=== PATIENT | male | born 1940 | race Caucasian/White ===

== ENCOUNTER 2016-08-18 11:10 | Inpatient (IN) | payer MEDICARE ==
[~2016-08-18] VITALS: Ht 185.4 cm; Wt 79.8 kg
[~2016-08-18 11:10] MED LIST: DOXA2TAB2 PO; NITR0.4T SL; PRAV40TA2 PO; TRAM50TA PO
[2016-08-18 14:38] VITALS: BP 119/71
[2016-08-18 15:14] VITALS: BP 119/71
[2016-08-18] MEDS ORDERED: INUL2TAB4 PO (15:59)
[2016-08-18] MEDS ORDERED: FINA5TAB4 PO (16:00)
[2016-08-18] MEDS ORDERED: GABA-586 PO (16:01)
[2016-08-18] MEDS ORDERED: MULT-690 PO (16:01)
[2016-08-18] MEDS ORDERED: MIRA50TA PO (16:02)
[2016-08-18] MEDS ORDERED: OMEP40CA5 PO (16:04)
[2016-08-18] MEDS ORDERED: OXYC-323 PO (16:06)
[2016-08-18] MEDS ORDERED: TAMS0.4C2 PO (16:07)
[2016-08-18] MEDS ORDERED: CALC-30 PO (16:11)
[2016-08-18] MEDS ORDERED: ASPI81TA50 PO (16:12)
[2016-08-18] MEDS ORDERED: IPRA3AMP NEB (16:13)
[2016-08-18] MEDS ORDERED: ZOLPIDEM 5 MG TABLET. PO PRN (16:45)
[2016-08-18] MEDS: AMPICILLIN/SULBACTAM 3 GM in IV NORMAL SALINE 100ML 100 ML IV SCH ×2 (17:48→23:55)
[2016-08-18] MEDS ORDERED: oxyCODONE/APAP 5/325 1 TAB TABLET PO PRN (18:30)
[2016-08-18 19:50] VITALS: BP 110/65
[2016-08-18] MEDS: PRAVASTATIN 20 MG TABLET. PO SCH (20:00)
[2016-08-18] MEDS: GABAPENTIN 300 MG CAPSULE. PO SCH (20:01)
[2016-08-18] MEDS: IPRATRPIUM/ALBUTEROL 0.5/2.5MG 3 ML NEBU. NEB SCH (20:32)
[2016-08-19 05:37] VITALS: BP 112/66
[2016-08-19] MEDS: AMPICILLIN/SULBACTAM 3 GM in IV NORMAL SALINE 100ML 100 ML IV SCH (05:59)
[2016-08-19 06:31] LABS: ALBUMIN/GLOBULIN RATIO 0.8 (1.0-1.7); CALCIUM 9.8 mg/dL (8.5-10.1); CREATININE 1.3 mg/dL (0.7-1.3); GFR 53.8; POTASSIUM 4.5 mmol/L (3.5-5.1); TOTAL BILIRUBIN 0.3 mg/dL (0.2-1.0); TOTAL PROTEIN 6.6 g/dL (6.4-8.2)
[2016-08-19] MEDS: CALCIUM CARB/VIT D3 500/200 TABLET PO SCH (07:50)
[2016-08-19] MEDS: PANTOPRAZOLE 40 MG TABLET. PO SCH (08:43)
[2016-08-19] MEDS: FINASTERIDE 5 MG TABLET PO SCH (08:43)
[2016-08-19] MEDS: MULTIVITAMIN with MINERAL TABLET. PO SCH (08:43)
[2016-08-19] MEDS: TAMSULOSIN 0.4 MG CAP.ER.24H. PO SCH (08:43)
[2016-08-19] MEDS: ASPIRIN ENTERIC COATED 81 MG TABLET.DR. PO SCH (08:43)
[2016-08-19] MEDS: GABAPENTIN 300 MG CAPSULE. PO SCH ×2 (08:43→20:44)
[2016-08-19] MEDS: MIRABEGRON 25 MG TAB.ER.24H PO SCH (08:45)
[2016-08-19] MEDS ORDERED: NON FORMULARY ITEM (Inulin (Fiber Gummies) 2 GM) PO SCH (09:00)
[2016-08-19] MEDS: IPRATRPIUM/ALBUTEROL 0.5/2.5MG 3 ML NEBU. NEB SCH ×2 (10:51→20:16)
[2016-08-19] MEDS: NAPROXEN 250 MG TABLET PO PRN (11:47)
[2016-08-19 18:43] VITALS: BP 120/74
[2016-08-19] MEDS: AMOXICILLIN/K CLAV 875/125MG TABLET. PO SCH (20:44)
[2016-08-19] MEDS: PRAVASTATIN 20 MG TABLET. PO SCH (20:44)
[2016-08-20 06:00] VITALS: BP 110/71
[2016-08-20] MEDS: CALCIUM CARB/VIT D3 500/200 TABLET PO SCH (07:54)
[2016-08-20] MEDS: PANTOPRAZOLE 40 MG TABLET. PO SCH (07:54)
[2016-08-20] MEDS: NAPROXEN 250 MG TABLET PO PRN ×2 (08:04→20:57)
[2016-08-20] MEDS: TAMSULOSIN 0.4 MG CAP.ER.24H. PO SCH (08:44)
[2016-08-20] MEDS: AMOXICILLIN/K CLAV 875/125MG TABLET. PO SCH ×2 (08:44→20:41)
[2016-08-20] MEDS: ASPIRIN ENTERIC COATED 81 MG TABLET.DR. PO SCH (08:44)
[2016-08-20] MEDS: MULTIVITAMIN with MINERAL TABLET. PO SCH (08:45)
[2016-08-20] MEDS: FINASTERIDE 5 MG TABLET PO SCH (08:45)
[2016-08-20] MEDS: MIRABEGRON 25 MG TAB.ER.24H PO SCH (08:45)
[2016-08-20] MEDS: GABAPENTIN 300 MG CAPSULE. PO SCH ×2 (08:45→20:41)
[2016-08-20] MEDS: IPRATRPIUM/ALBUTEROL 0.5/2.5MG 3 ML NEBU. NEB SCH ×2 (09:49→20:25)
[2016-08-20 09:52] LABS: BILIRUBIN,URINE NEG (NEG); CLARITY,URINE CLEAR; COLOR,URINE YELLOW; GLUCOSE,URINE NEG (NEG); NITRITE,URINE NEG (NEG); UROBILINOGEN,URINE 0.2 mg/dL (0.2 mg/dL)
[2016-08-20 09:53] LABS: BACTERIA,URINE FEW /HPF (0-FEW); RBC,URINE OCC /HPF (0-2); SQUAMOUS EPITHELIAL CELL,UR OCC /LPF; WBC,URINE RARE /HPF (0-4)
[2016-08-20 19:28] VITALS: BP 150/64
[2016-08-20] MEDS: PRAVASTATIN 20 MG TABLET. PO SCH (20:41)
--- NOTE | 2016-08-21 00:18 | PN ---
DATE: 08/20/2016 SUBJECTIVE: He is on the Skilled Unit here at [facility] was brought over. He had a combination of sepsis with pneumonia and enterobacter infections. As a result of this, the patient was admitted to the hospital over there he continues on IV antibiotic therapy and will make further evaluation on him as indicated. He does have a low albumin. He is still receiving physical, occupational therapy, and will continue to make further assessment on him as indicated. OBJECTIVE: VITAL SIGNS: Otherwise, blood pressure 110/70, respiratory rate 20, pulse 70, afebrile. The patient is alert and oriented. LUNGS: Diminished, but clear. CARDIOVASCULAR: Stable. ABDOMEN: Soft, nontender. EXTREMITIES: No clubbing, cyanosis, or edema. PLAN: We will go ahead and continue to monitor the patient accordingly and make further evaluation with antibiotics, physical, and occupational therapy. He also had COPD acute respiratory failure. AUSTYN MCNEIL MD DR: ERIC/jada JOB#: [id number] / [id number]
[2016-08-21 06:00] VITALS: BP 100/65
[2016-08-21] MEDS: TAMSULOSIN 0.4 MG CAP.ER.24H. PO SCH (07:34)
[2016-08-21] MEDS: AMOXICILLIN/K CLAV 875/125MG TABLET. PO SCH (07:34)
[2016-08-21] MEDS: ASPIRIN ENTERIC COATED 81 MG TABLET.DR. PO SCH (07:34)
[2016-08-21] MEDS: CALCIUM CARB/VIT D3 500/200 TABLET PO SCH (07:34)
[2016-08-21] MEDS: GABAPENTIN 300 MG CAPSULE. PO SCH (07:35)
[2016-08-21] MEDS: MIRABEGRON 25 MG TAB.ER.24H PO SCH (07:35)
[2016-08-21] MEDS: FINASTERIDE 5 MG TABLET PO SCH (07:35)
[2016-08-21] MEDS: PANTOPRAZOLE 40 MG TABLET. PO SCH (07:35)
[2016-08-21] MEDS: MULTIVITAMIN with MINERAL TABLET. PO SCH (07:35)
[2016-08-21] MEDS: IPRATRPIUM/ALBUTEROL 0.5/2.5MG 3 ML NEBU. NEB SCH (11:40)
== END 2016-08-21 13:10 | disposition home or self-care (01) | DRG 871 ==
LOC: LND 14:16
PROVIDERS: ADMIT Family Medicine; ATTEND Family Medicine
DX: A41.59 Other Gram-negative sepsis (principal); J18.9 Pneumonia, unspecified organism; J44.0 Chronic obstructive pulmonary disease with (acute) lower respiratory infection; N39.0 Urinary tract infection, site not specified; J44.9 Chronic obstructive pulmonary disease, unspecified
CPT/HCPCS: 36415; 80048; 80053; 81001; 94640; 94760; J0295; J7620; 97110

== ENCOUNTER → 2016-08-21 | Outpatient (CLI) | payer MEDICARE ==
[~2016-08-21] MED LIST changes: +ASPI81TA50 PO; +CALC-30 PO; +FINA5TAB4 PO; +GABA-586 PO; +INUL2TAB4 PO; +IPRA3AMP NEB; +MIRA50TA PO; +MULT-690 PO; +OMEP40CA5 PO; +OXYC-323 PO; +TAMS0.4C2 PO
[2016-08-21 06:00] VITALS: BP 100/65
--- NOTE | 2016-08-21 15:51 | RAD ---
Scrotal ultrasound, 08/21/2016: History: Left testicular pain The right testicle measures 4.6 x 2.2 x 3.5 cm while the left testicle measures 4.6 x 2.5 x 3.4 cm. No testicular mass is seen. There is symmetric blood flow in the testicles. No epididymal abnormality is detected. There is a small amount of fluid in the scrotal sac bilaterally. There is a small amount of echogenic debris within the left hydrocele. IMPRESSION: 1. No testicular abnormality is detected. 2. Small bilateral hydroceles.
== END | disposition home or self-care (01) ==
LOC: US 13:20
PROVIDERS: ATTEND Family Medicine
DX: N43.3 Hydrocele, unspecified (principal); N50.82 Scrotal pain
CPT/HCPCS: 76870

== ENCOUNTER 2019-02-25 19:50 | Inpatient (IN) | payer MEDICARE ==
[~2019-02-25] VITALS: Ht 185.4 cm; Wt 78.6 kg
[~2019-02-25 19:50] MED LIST changes: -IPRA3AMP NEB; +IPRA3AMP29 NEB; -NITR0.4T SL; +NITR0.4T24 SL; +OMEP40CA45 PO; -OMEP40CA5 PO; -OXYC-323 PO; +OXYC1TAB15 PO
[2019-02-25 20:36] VITALS: BP 113/71
[2019-02-25] MEDS ORDERED: IV NORMAL SALINE 1,000ML 1,000 ML IV SCH (21:15)
[2019-02-25] MEDS ORDERED: ZOLPIDEM 5 MG TABLET. PO PRN (21:15)
[2019-02-25] MEDS ORDERED: DULO20CA18 PO (21:46)
[2019-02-25] MEDS ORDERED: ACET325T9 PO (21:46)
[2019-02-25] MEDS ORDERED: PRAV20TA2 PO (21:46)
[2019-02-25] MEDS ORDERED: NAPR220C4 PO (21:46)
[2019-02-25 22:42] VITALS: BP 150/81
[2019-02-26 00:37] LABS: BILIRUBIN,URINE NEG (NEG); CLARITY,URINE CLEAR; COLOR,URINE YELLOW; GLUCOSE,URINE NEG (NEG); UROBILINOGEN,URINE 0.2 mg/dL (0.2 mg/dL)
[2019-02-26 00:38] LABS: BACTERIA,URINE 0 /HPF (0-FEW); NITRITE,URINE NEG (NEG); SQUAMOUS EPITHELIAL CELL,UR OCC /LPF; WBC,URINE OCC /HPF (0-4)
[2019-02-26 05:30] VITALS: BP 114/81
[2019-02-26] MEDS: PANTOPRAZOLE 40 MG TABLET. PO SCH (08:09)
[2019-02-26] MEDS ORDERED: FINASTERIDE 5 MG TABLET PO SCH (09:00)
[2019-02-26] MEDS ORDERED: GABAPENTIN 300 MG CAPSULE. PO SCH (09:00)
[2019-02-26] MEDS ORDERED: TAMSULOSIN 0.4 MG CAP.ER.24H. PO SCH (09:00)
[2019-02-26] MEDS ORDERED: MIRABEGRON 25 MG TAB.ER.24H PO SCH (09:00)
[2019-02-26] MEDS ORDERED: ASPIRIN ENTERIC COATED 81 MG TABLET.DR. PO SCH ×2 (09:00→21:00)
[2019-02-26] MEDS ORDERED: ACETAMINOPHEN 500 MG TABLET PO PRN (10:15)
[2019-02-26] MEDS ORDERED: NAPROXEN 250 MG TABLET PO PRN (10:15)
[2019-02-26] MEDS: DULoxetine HCL 60 MG CAPSULE.DR PO SCH (10:17)
[2019-02-26] MEDS: MAALOX:LIDO:APAP 6:2:1 ORAL SUSPENSION 180 ML BOTTLE. PO PRN (11:08)
[2019-02-26 11:10] VITALS: BP 118/69
[2019-02-26 15:00] VITALS: BP 119/68
[2019-02-26 18:54] VITALS: BP 144/82
[2019-02-26] MEDS ORDERED: ATORVASTATIN CALCIUM 10 MG TABLET. PO SCH (21:00)
[2019-02-26] MEDS: LACTOBACILLUS RHAMNOSUS GG 1 CAPSULE. PO SCH (21:36)
[2019-02-26 23:20] VITALS: BP 127/80
--- NOTE | 2019-02-26 23:43 | PN ---
DATE: SUBJECTIVE: A 78-year-old male admitted with pneumonia, hematuria, nephrolithiasis, severe back and flank pain. The patient has been ill for the last 4 days; prior to admission, running temperatures at home; came in through the office and was very weakened. CT scan initially was missed reported his diverticulitis, but did show infiltrative processes within the patient's lungs consistent with a pneumonic process, which would go along also with his cough. A PCR was performed in the office that is still pending. PHYSICAL EXAMINATION: VITAL SIGNS: His blood pressure was high as 150/81, respiratory rate 20, pulse 80. He is afebrile presently, actually he is almost on the low side 97.2. GENERAL: The patient is alert and oriented. LUNGS: Diminished. There is some rough breath sounds in the left lower lobe. CARDIOVASCULAR: Regular sinus rhythm. ABDOMEN: Soft. There is tenderness. He does have tenderness in his epigastric area and mild tenderness in the left lower quadrant area, but he also was noted on CAT scan to have a large 11 cm cyst in his kidneys and also nephrolithiasis. IMPRESSION: Pneumonia of unspecified etiology, community acquired; hematuria; nephrolithiasis; epigastric pain; diverticulosis. PLAN: As above. Continue with IV antibiotic therapy for now and make further evaluation on him as indicated. AUSTYN MCNEIL MD DR: ERIC/jada JOB#: [id number] / [id number]
[2019-02-27 06:05] VITALS: BP 125/72
[2019-02-27] MEDS: DULoxetine HCL 60 MG CAPSULE.DR PO SCH (08:19)
[2019-02-27] MEDS: PANTOPRAZOLE 40 MG TABLET. PO SCH (08:19)
[2019-02-27] MEDS: LACTOBACILLUS RHAMNOSUS GG 1 CAPSULE. PO SCH (08:19)
[2019-02-27] MEDS: MAALOX:LIDO:APAP 6:2:1 ORAL SUSPENSION 180 ML BOTTLE. PO PRN ×2 (09:14→16:02)
[2019-02-27] MEDS ORDERED: FAMOTIDINE 20 MG TABLET PO SCH (10:30)
[2019-02-27 10:54] VITALS: BP 115/71
[2019-02-27] MEDS ORDERED: OXYMETAZOLINE 0.05% NASAL SPRAY 15ML BOTTLE. NS SCH (14:00)
[2019-02-27 14:32] VITALS: BP 127/61
[2019-02-27] MEDS ORDERED: DOXY100C2 PO (17:37)
[2019-02-27] MEDS ORDERED: DOXYCYCLINE HYCLATE 100 MG TABLET PO SCH (21:00)
--- NOTE | 2019-02-28 13:53 | DS ---
DATE OF DISCHARGE: 02/27/2019 HOSPITAL COURSE: A 78-year-old gentleman came in with severe nausea, vomiting, abdominal pain as well as pneumonia. The patient had been treated as an outpatient and failed that, became increasingly ill in the last 3-4 days prior to admission, got progressively worse and was admitted to the hospital for further evaluation and treatment. Blood pressure 127/61, respiratory rate 20, pulse 80, afebrile. The patient was alert and oriented. Lungs: Diminished, primarily in the bases. Imaging scans demonstrated linear markings compatible with probable interstitial infiltrative process, which went along with a temperature he was running as an outpatient. He did have on CT scan also diverticulosis, multiple renal lesions, one of which the left kidney demonstrated 11.7 cm diameter larger compared with limited previous images of that area. The patient otherwise had a moderately large hiatal hernia as noted, prostatomegaly and of course, his pneumonia. He was treated with IV antibiotic therapy. He was discharged home in good condition without any complication. He will be on a regular diet, decreased activity. See MRAD. He was started on doxycycline as an outpatient. He will follow up as an outpatient and make further evaluation on him for those results. IMPRESSION: Pneumonia of unspecified etiology, community acquired, large renal cyst as well as abdominal pain, nausea, dehydration. PLAN: As above. AUSTYN MCNEIL MD DR: ERIC/jada JOB#: [id number] / [id number]
== END 2019-02-27 18:08 | disposition home or self-care (01) | DRG 640 ==
LOC: 1 SOUTH 19:50
PROVIDERS: ADMIT Family Medicine; ATTEND Family Medicine
DX: E86.0 Dehydration (principal); J18.9 Pneumonia, unspecified organism; K57.92 Diverticulitis of intestine, part unspecified, without perforation or abscess without bleeding; N20.0 Calculus of kidney; K44.9 Diaphragmatic hernia without obstruction or gangrene; N28.1 Cyst of kidney, acquired
CPT/HCPCS: 36415; 74176; 80053; 81001; 83605; 83690; 84145; 85025; J0696; J1956; J3490; J7030

== ENCOUNTER 2020-11-02 20:59 | Emergency (ER) | payer MEDICARE ==
[~2020-11-02] VITALS: Ht 185.4 cm; Wt 77.2 kg
[~2020-11-02 20:59] MED LIST changes: +ACET325T9 PO; +DOXY100C3 PO; +DULO20CA18 PO; +MIRA25TA PO; -MIRA50TA PO; +NAPR220C4 PO; -OMEP40CA45 PO; +OMEP40CA7 PO; +PRAV20TA2 PO
[2020-11-02] MEDS ORDERED: ONDANSETRON PF 4 MG/2 ML VIAL. IVP ONE (22:00)
[2020-11-02] MEDS ORDERED: IV RINGERS SOLUTION,LACTATED 1,000 ML IV ONE (22:00)
[2020-11-02] MEDS ORDERED: MORPHINE SULFATE 4 MG/ML DISP.SYRIN. IV ONE (22:00)
[2020-11-02 22:06] LABS: BASO % 0 % (0-3); EOS % 1 % (0-3); HEMATOCRIT 42.4 % (39.0-53.0); HEMOGLOBIN 14.4 g/dL (13.0-17.5); LYMPH # 0.6 x10^3/uL (1.0-4.8); LYMPH % 10 % (24-48); MEAN CORPUSCULAR HEMOGLOBIN 31 pg (25-35); MEAN CORPUSCULAR HGB CONC 34 g/dL (31-37); MEAN CORPUSCULAR VOLUME 92 fL (79-100); MONO # 1.1 x10^3/uL (0.0-1.1); MONO % 17 % (0-9); NEUT # 4.5 x10^3uL (1.8-7.7); NEUT % 72 % (31-73); PLATELET COUNT 236 x10^3/uL (140-400); RED BLOOD COUNT 4.59 x10^6/uL (4.30-5.70); RED CELL DISTRIBUTION WIDTH 13.3 % (11.5-14.5); WHITE BLOOD COUNT 6.3 x10^3/uL (4.0-11.0)
[2020-11-02 22:14] LABS: CALCIUM 9.6 mg/dL (8.5-10.1); CREATININE 1.3 mg/dL (0.7-1.3); GFR 53.1; POTASSIUM 4.4 mmol/L (3.5-5.1)
--- NOTE | 2020-11-02 22:17 | PHYS DOC ---
Adult General Chief Complaint Chief Complaint: FEVER HPI HPI Patient is an 80-year-old male with a past medical history significant for recent lithotripsy and cyst drainage of kidney approximately a week ago with a 13 mm stone. States he was discharged from the hospital about a week ago and since then has had some flank pain, 6 out of 10, sharp in nature but has run out of his pain medication. States he has had some mild nausea but no vomiting. States has had fevers at home around 100 degrees. Denies any chest pain, shortness of breath, other abdominal pain, vomiting, dysuria, hematuria, blood in the stool or diarrhea. States that he went to his primary care physician and was directed to the emergency department for IV fluids and pain medicine. Review of Systems Review of Systems Constitutional: Denies fever or chills [] Eyes: Denies change in visual acuity, redness, or eye pain [] HENT: Denies nasal congestion or sore throat [] Respiratory: Denies cough or shortness of breath [] Cardiovascular: No additional information not addressed in HPI [] GI: Denies abdominal pain, nausea, vomiting, bloody stools or diarrhea [] : Denies dysuria or hematuria [] Musculoskeletal: Denies back pain or joint pain [] Integument: Denies rash or skin lesions [] Neurologic: Denies headache, focal weakness or sensory changes [] Endocrine: Denies polyuria or polydipsia [] All other systems were reviewed and found to be within normal limits, except as documented in this note. Current Medications Current Medications Current Medications Medications (Trade) Dose Ordered Sig/Mariaa Start Time Stop Time Status Last Admin Dose Admin Lactated Ringer's 1,000 ml @ 1,000 mls/hr 1X ONCE 11/02/20 22:00 11/02/20 22:59 Morphine Sulfate (Morphine 4mg Syringe) 4 mg 1X ONCE 11/02/20 22:00 11/02/20 22:01 DC Ondansetron HCl (Zofran) 4 mg 1X ONCE 11/02/20 22:00 11/02/20 22:01 DC Allergies Allergies Allergies Coded Allergies Type Severity Reaction Last Updated Verified No Known Drug Allergies 10/17/13 No Physical Exam Physical Exam Constitutional: Well developed, well nourished, no acute distress, non-toxic appearance. [] HENT: Normocephalic, atraumatic, bilateral external ears normal, oropharynx moist, no oral exudates, nose normal. [] Eyes: conjunctiva normal, no discharge. [] Neck: Normal range of motion, no tenderness, supple, no stridor. [] Cardiovascular:Heart rate regular rhythm, no murmur [] Lungs & Thorax: Bilateral breath sounds clear to auscultation [] Abdomen: Bowel sounds normal, soft, no tenderness, no masses, no pulsatile masses. [] Skin: Warm, dry, no erythema, no rash. [] Back: CVA tenderness. [] Extremities: No tenderness, no cyanosis, no clubbing, ROM intact, no edema. [] Neurologic: Alert and oriented X 3, no focal deficits noted. [] Psychologic: Affect normal, judgement normal, mood normal. [] Current Patient Data Lab Results Laboratory Tests Test 11/02/20 21:54 White Blood Count 6.3 x10^3/uL (4.0-11.0) Red Blood Count 4.59 x10^6/uL (4.30-5.70) Hemoglobin 14.4 g/dL (13.0-17.5) Hematocrit 42.4 % (39.0-53.0) Mean Corpuscular Volume 92 fL (79-100) Mean Corpuscular Hemoglobin 31 pg (25-35) Mean Corpuscular Hemoglobin Concent 34 g/dL (31-37) Red Cell Distribution Width 13.3 % (11.5-14.5) Platelet Count 236 x10^3/uL (140-400) Neutrophils (%) (Auto) 72 % (31-73) Lymphocytes (%) (Auto) 10 % (24-48) L Monocytes (%) (Auto) 17 % (0-9) H Eosinophils (%) (Auto) 1 % (0-3) Basophils (%) (Auto) 0 % (0-3) Neutrophils # (Auto) 4.5 x10^3uL (1.8-7.7) Lymphocytes # (Auto) 0.6 x10^3/uL (1.0-4.8) L Monocytes # (Auto) 1.1 x10^3/uL (0.0-1.1) Eosinophils # (Auto) 0.0 x10^3/uL (0.0-0.7) Basophils # (Auto) 0.0 x10^3/uL (0.0-0.2) EKG EKG [] Radiology/Procedures Radiology/Procedures [] FINDINGS: Limited images of lung bases show linear bands of increased density in the lower lobes, likely scar or atelectasis. Heart size is within normal limits. There is a moderate size hiatal hernia. No pleural or pericardial effusion. Solid abdominal viscera not well evaluated in the absence of contrast material. No apparent attenuation abnormality of the liver or spleen. Pancreas, adrenal glands and gallbladder are unremarkable. There is a left ureteral stent in place, new from prior study. No calcific stone along the course of the stent. There are small calcific stones along the calyceal margins of the mid to lower pole left kidney measuring 2 to 3 mm in size each. No significant hydronephrosis. Previously described large renal cyst posteriorly on the left has significantly decreased in size and there is a linear band that extends laterally from this area posteriorly into the perinephric fat, likely related to cyst rupture. There are additional smaller cysts at each kidney, largest on the right measures 7.2 cm at the lower pole. There is a 5 mm calcific stone at the lower pole right kidney. No right-sided hydronephrosis. Unopacified GI tract normal in caliber and contour. No bowel wall thickening. Scattered diverticula throughout the colon. No paracolonic inflammatory changes. Appendix normal in caliber. No ascites or lymphadenopathy. Abdominal aorta normal in caliber. Images of pelvis show nondistended urinary bladder. There is a 4 mm calcific stone along the posterior bladder wall. No wall thickening. Prostate gland mildly enlarged. No free fluid or pelvic lymphadenopathy. Bone windows show no acute findings. Multilevel spondylosis. There is evidence of prior laminectomy and fusion from L3 to the sacrum. IMPRESSION: 1. Bilateral nephrolithiasis, nonobstructive. There is a left-sided ureteral stent in place. No hydronephrosis. 2. Bilateral renal cysts. Previously described large renal cyst posteriorly on the left. Significant decrease in size and a linear band of fluid is located in the posterior perinephric space, suggesting cyst rupture. 3. Small calcific stone within the urinary bladder. 4. Diverticulosis. 5. Hiatal hernia. Heart Score C/O Chest Pain: No Risk Factors: Risk Factors: DM, Current or recent (<one month) smoker, HTN, HLP, family hist ory of CAD, obesity. Risk Scores: Risk Factors: DM, Current or recent (<one month) smoker, HTN, HLP, family history of CAD, obesity. Course & Med Decision Making Course & Med Decision Making Patient is an 80-year-old male who presents with flank pain approximately 1 week status post lithotripsy and renal cyst drainage Vital signs not concerning. Physical exam noted above. Patient placed on the monitor with IV access established and IV fluid given. Morphine given for pain. Patient denies any nausea, but given Zofran as morphine on an antistomach can sometimes cause nausea.. Laboratory analysis not concerning. On reassessment patient stated that symptoms had significantly improved and he would like to be discharged home. Discussed all findings with patient and family. Advised to call both primary care physician and retail helper in the morning to discuss his ED visit. Gave strict return precautions to the ED. Patient grateful, verbalized understanding and agreed with plan of discharge. Dragon Disclaimer Dragon Disclaimer This electronic medical record was generated, in whole or in part, using a voice recognition dictation system. Departure Departure: Impression: Primary Impression: Flank pain Disposition: HOME / SELF CARE / HOMELESS Condition: IMPROVED Referrals: AUSTYN MCNEIL MD (PCP) Patient Instructions: Diet for Kidney Stones, Flank Pain, Kidney Stones Additional Instructions: Thank you for coming into the emergency department tonight and allowing us to take care of you. Please read all of the attached information very carefully to go back over the things we discussed. As discussed please begin taking your oxycodone that was prescribed to you as this will help with your left-sided flank pain. As discussed please do not wait until the pain is severe before taking these as it is harder to control. Please take them scheduled over the next couple of days initially. Please be sure to drink plenty of fluids as well. As discussed, please be sure to be careful at night while taking these medications as they can make you lightheaded and increase your risk of falling. Please put yourself between the bed and the wall as discussed or a chair by the bed when you need to sit up and go to the restroom at night. Please call your primary care physician and your kidney doctor first thing in the morning to update on your ED visit and set up follow-up appointments. Please come back to the ED immediately with new or concerning symptoms as discussed. DWAIN BABB MD Nov 02, 2020 22:17
--- NOTE | 2020-11-02 22:33 | RAD ---
CT abdomen pelvis without contrast dated 11/02/2020. There is made to 02/25/2019. CLINICAL INDICATION: Left flank pain and fever. TECHNIQUE: Contiguous axial imaging the abdomen pelvis performed without the administration of IV or oral contra st. One or more of the following individualized dose reduction techniques were utilized for this examinat ion: 1. Automated exposure control 2. Adjustment of the mA and/or kV according to patient size 3. Use of iterative reconstruction technique. FINDINGS: Limited images of lung bases show linear bands of increased density in the lower lobes, likely scar o r atelectasis. Heart size is within normal limits. There is a moderate size hiatal hernia. No pleural or pericardial effusion. Solid abdominal viscera not well evaluated in the absence of contrast material. No apparent attenuati on abnormality of the liver or spleen. Pancreas, adrenal glands and gallbladder are unremarkable. There is a left ureteral stent in place, new from prior study. No calcific stone along the course of the stent. There are small calcific stones along the calyceal margins of the mid to lower pole left k idney measuring 2 to 3 mm in size each. No significant hydronephrosis. Previously described large aminata al cyst posteriorly on the left has significantly decreased in size and there is a linear band that e xtends laterally from this area posteriorly into the perinephric fat, likely related to cyst rupture. There are additional smaller cysts at each kidney, largest on the right measures 7.2 cm at the lower pole. There is a 5 mm calcific stone at the lower pole right kidney. No right-sided hydronephrosis. Unopacified GI tract normal in caliber and contour. No bowel wall thickening. Scattered diverticula t hroughout the colon. No paracolonic inflammatory changes. Appendix normal in caliber. No ascites or l ymphadenopathy. Abdominal aorta normal in caliber. Images of pelvis show nondistended urinary bladder. There is a 4 mm calcific stone along the posterio r bladder wall. No wall thickening. Prostate gland mildly enlarged. No free fluid or pelvic lymphaden opathy. Bone windows show no acute findings. Multilevel spondylosis. There is evidence of prior laminectomy a nd fusion from L3 to the sacrum. IMPRESSION: 1. Bilateral nephrolithiasis, nonobstructive. There is a left-sided ureteral stent in place. No hydro nephrosis. 2. Bilateral renal cysts. Previously described large renal cyst posteriorly on the left. Significant decrease in size and a linear band of fluid is located in the posterior perinephric space, suggesting cyst rupture. 3. Small calcific stone within the urinary bladder. 4. Diverticulosis. 5. Hiatal hernia. Electronically signed by: Edil Parham MD (11/02/2020 10:31 PM) USMAN
[2020-11-02 23:34] LABS: BACTERIA,URINE 0 /HPF (0-FEW); BILIRUBIN,URINE NEG (NEG); CLARITY,URINE CLEAR; COLOR,URINE YELLOW; GLUCOSE,URINE NEG (NEG); NITRITE,URINE NEG (NEG); RBC,URINE OCC /HPF (0-2); SQUAMOUS EPITHELIAL CELL,UR OCC /LPF; UROBILINOGEN,URINE 0.2 mg/dL (0.2 mg/dL)
[2020-11-03 00:15] VITALS: BP 121/62
[2020-11-03] MEDS ORDERED: HYOS0.1222 PO (14:29)
[2020-11-03] MEDS ORDERED: CALC1TAB PO (14:29)
[2020-11-03] MEDS ORDERED: PRAV20TA2 PO (14:29)
[2020-11-03] MEDS ORDERED: FINA5TAB4 PO (14:29)
[2020-11-03] MEDS ORDERED: PANT40TA6 PO (14:29)
[2020-11-03] MEDS ORDERED: OXYB5TAB10 PO (14:29)
[2020-11-03] MEDS ORDERED: ACET500T68 PO (14:29)
[2020-11-03] MEDS ORDERED: POLY17PO5 PO (14:29)
[2020-11-03] MEDS ORDERED: SENN1TAB99 PO (14:29)
[2020-11-03] MEDS ORDERED: OXYC5TAB4 PO (14:29)
[2020-11-08] MEDS ORDERED: PRED-220 PO (14:42)
[2020-11-08] MEDS ORDERED: AZIT250T6 PO (14:42)
== END 2020-11-03 00:25 | disposition home or self-care (01) ==
LOC: ER 20:59
DX: R10.9 Unspecified abdominal pain (principal); R11.0 Nausea; R50.9 Fever, unspecified
CPT/HCPCS: 99284; J2270; J2405; J7120; 36415; 74176; 80048; 81001; 85025; 96361; 96374; 96375

== ENCOUNTER 2020-11-03 11:36 | Inpatient (IN) | payer MEDICARE ==
[~2020-11-03] VITALS: Ht 188 cm; Wt 79.1 kg
[2020-11-03] MEDS ORDERED: POLY17PO5 PO (14:29)
[2020-11-03] MEDS ORDERED: OXYB5TAB10 PO (14:29)
[2020-11-03] MEDS ORDERED: OXYC5TAB4 PO (14:29)
[2020-11-03] MEDS ORDERED: CALC1TAB PO (14:29)
[2020-11-03] MEDS ORDERED: PRAV20TA2 PO (14:29)
[2020-11-03] MEDS ORDERED: FINA5TAB4 PO (14:29)
[2020-11-03] MEDS ORDERED: SENN1TAB99 PO (14:29)
[2020-11-03] MEDS ORDERED: PANT40TA6 PO (14:29)
[2020-11-03] MEDS ORDERED: HYOS0.1222 PO (14:29)
[2020-11-03] MEDS ORDERED: ACET500T68 PO (14:29)
[2020-11-03 14:31] VITALS: BP 108/65
[2020-11-03 16:19] LABS: ALBUMIN 2.4 g/dL (3.4-5.0); ALBUMIN/GLOBULIN RATIO 0.7 (1.0-1.7); CALCIUM 9.5 mg/dL (8.5-10.1); CREATININE 1.4 mg/dL (0.7-1.3); GFR 48.8; TOTAL BILIRUBIN 0.3 mg/dL (0.2-1.0)
[2020-11-03 16:22] LABS: BASO % 0 % (0-3); EOS % 0 % (0-3); HEMATOCRIT 39.7 % (39.0-53.0); HEMOGLOBIN 13.3 g/dL (13.0-17.5); LYMPH # 0.8 x10^3/uL (1.0-4.8); LYMPH % 12 % (24-48); MEAN CORPUSCULAR HEMOGLOBIN 31 pg (25-35); MEAN CORPUSCULAR HGB CONC 34 g/dL (31-37); MEAN CORPUSCULAR VOLUME 93 fL (79-100); MONO # 1.2 x10^3/uL (0.0-1.1); MONO % 16 % (0-9); NEUT # 5.1 x10^3uL (1.8-7.7); NEUT % 72 % (31-73); PLATELET COUNT 233 x10^3/uL (140-400); RED BLOOD COUNT 4.29 x10^6/uL (4.30-5.70); RED CELL DISTRIBUTION WIDTH 13.5 % (11.5-14.5); WHITE BLOOD COUNT 7.1 x10^3/uL (4.0-11.0)
[2020-11-03 19:40] VITALS: BP 115/63
[2020-11-03] MEDS ORDERED: POLYETHYLENE GLYCOL 3350 17 GM PACKET. PO PRN (19:45)
[2020-11-03] MEDS ORDERED: oxyCODONE IR 5 MG TABLET PO PRN (19:45)
[2020-11-03] MEDS ORDERED: HYOSCYAMINE 0.125 MG TAB.RAPDIS PO PRN (19:45)
[2020-11-03] MEDS: MELATONIN 3 MG TABLET PO PRN (20:05)
[2020-11-03] MEDS: IV 1/2 NORMAL SALINE 1,000 ML IV SCH (20:05)
[2020-11-03] MEDS: ACETAMINOPHEN 500 MG TABLET PO PRN (20:06)
[2020-11-03] MEDS: OXYBUTYNIN CHLORIDE 5 MG TABLET PO SCH (20:06)
[2020-11-03] MEDS: SENNOSIDES/DOCUSATE 8.6/50MG TABLET. PO SCH (20:06)
[2020-11-03] MEDS ORDERED: ATORVASTATIN CALCIUM 10 MG TABLET. PO SCH (21:00)
[2020-11-03] MEDS: CIPROFLOXACIN 400MG PREMIX 200 ML IV SCH (21:19)
--- NOTE | 2020-11-03 22:27 | EKG ---
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
[2020-11-03 23:02] VITALS: BP 103/62
[2020-11-04 05:31] VITALS: BP 127/71
[2020-11-04] MEDS ORDERED: PROCHLORPERAZINE 10 MG/2 ML VIAL. IV ONE (08:30)
[2020-11-04] MEDS: MORPHINE SULFATE 2 MG/ML DISP.SYRIN. IV PRN ×2 (09:13→11:14)
[2020-11-04] MEDS: CIPROFLOXACIN 400MG PREMIX 200 ML IV SCH (09:14)
--- NOTE | 2020-11-04 09:38 | HP ---
ADMIT DATE: 11/04/2020 HISTORY OF PRESENT ILLNESS: An 80-year-old white male came in with right upper quadrant pain as well as a fever running approximately 101.5. The patient recently had a kidney stone removed on his left side, but continued to have pain on his right upper quadrant. The patient was evaluated by Surgery down at , did not feel it was his gallbladder since some of his test including the PIPIDA scan was negative; however, the patient continued to have pain and fever, came into the clinic. He was given some Rocephin and admitted to the hospital for IV antibiotic therapy and further evaluation was the determination of the physician that the patient probably had a cholelithiasis, cholecystitis and that he still continued to have significant right upper quadrant pain with nausea and vomiting. The patient was given IV fluids, IV antibiotic therapy and will attempt to be transferred to . PAST MEDICAL HISTORY: Hypercholesterolemia, pneumonia, diverticulosis, abdominal trauma, GERD, BPH, nephrolithiasis, TURP, degenerative disk disease, back pain, skin cancer. IMMUNIZATIONS: The patient has had immunizations for COVID as well as other vaccines. ALLERGIES: None known. FAMILY HISTORY: Unremarkable. SOCIAL HISTORY: The patient denies smoking, alcohol or drug use. The patient is a full code as noted. REVIEW OF SYSTEMS: He denies any headaches, visual changes, blurred vision, double vision. Denies any melena, hematochezia or hematemesis, except for presently right now where he has developed these here in the last day or so. The patient has right upper quadrant pain. He denies any problem with bowels. He does not notice any bernard-colored stools or blood in the stool, but he notes when he eats it makes him feel nauseated. He has no problems urinating and the patient otherwise has been basically clear on his urination. PHYSICAL EXAMINATION: GENERAL: The patient is a pleasant white male who is significantly ill holding his stomach with nausea and vomiting. VITAL SIGNS: Blood pressure 108/65, respiratory rate 24, pulse 70, temperature 102.1 at one time. HEENT: The patient's head was atraumatic, normocephalic. Eyes: PERRLA without jaundice. The mouth and throat were normal. NECK: Supple. LUNGS: Diminished, but clear. CARDIAC: Regular sinus rhythm. ABDOMEN: Definitely soft, but definite tenderness. Pain in the right upper quadrant area with guarding, but no rebounding. Positive bowel sounds. No hepatosplenomegaly. No bruits noted. Stool Hemoccult negative. EXTREMITIES: No clubbing, cyanosis, no edema. NEUROLOGIC: The patient is alert and oriented, but in significant discomfort. LABORATORY DATA: White count 7, hemoglobin 13 and hematocrit 40. Differential except for 16 monocytes was basically unremarkable. Sodium and potassium 132 and 5, BUN and creatinine 22 and 1.4. Blood sugar 120. C-reactive protein was elevated at 70. AST elevated at 55. Alkaline phosphatase 150, roughly. Albumin low at 2.4. UA that was taken down in the ER was negative for red blood cells or just occasional white blood cells, but otherwise negative for nitrites and leukocyte esterase. IMPRESSION: Right upper quadrant pain, probable acute ____ cholelithiasis, cholecystitis, nausea, vomiting, dehydration, mild renal insufficiency, severe protein malnutrition. PLAN: The patient will be continued with fluids, Compazine for nausea and continue on IV antibiotic therapy. We will attempt to get him transferred down to . ERIC/SANDEEP/HELENE DR: ERIC/jada TID: [id number]
[2020-11-04] MEDS: PIPERACILLIN/TAZOBACTAM 3.375 GM in IV NORMAL SALINE 50ML 50 ML IV SCH ×2 (11:00→17:38)
[2020-11-04] MEDS: CALCIUM CARB/VIT D3 500/200 TABLET PO SCH (11:13)
[2020-11-04] MEDS: OXYBUTYNIN CHLORIDE 5 MG TABLET PO SCH ×3 (11:13→19:54)
[2020-11-04] MEDS: ACETAMINOPHEN 500 MG TABLET PO PRN ×2 (11:13→19:54)
[2020-11-04] MEDS: PANTOPRAZOLE 40 MG TABLET. PO SCH (11:13)
[2020-11-04] MEDS: SENNOSIDES/DOCUSATE 8.6/50MG TABLET. PO SCH ×2 (11:13→19:54)
[2020-11-04] MEDS: FINASTERIDE 5 MG TABLET. PO SCH (11:14)
[2020-11-04] MEDS: IV 1/2 NORMAL SALINE 1,000 ML IV SCH ×2 (11:16→19:53)
[2020-11-04 11:22] VITALS: BP 114/68
[2020-11-04] MEDS ORDERED: IPRATRPIUM/ALBUTEROL 0.5/2.5MG 3 ML NEBU. NEB SCH (12:00)
[2020-11-04] MEDS ORDERED: IOHEXOL 350 MG/ML 100 ML VIAL. IV ONE (12:15)
[2020-11-04 12:22] LABS: CLARITY,URINE CLEAR; COLOR,URINE YELLOW
[2020-11-04 12:23] LABS: BACTERIA,URINE 0 /HPF (0-FEW); BILIRUBIN,URINE NEG (NEG); GLUCOSE,URINE NEG (NEG); NITRITE,URINE NEG (NEG); RBC,URINE 0 /HPF (0-2); SQUAMOUS EPITHELIAL CELL,UR OCC /LPF; UROBILINOGEN,URINE 0.2 mg/dL (0.2 mg/dL); WBC,URINE OCC /HPF (0-4)
[2020-11-04] MEDS ORDERED: MORPHINE SULFATE 2 MG/ML DISP.SYRIN. IV PRN (12:30)
[2020-11-04] MEDS ORDERED: CONTRAST GIVEN. MC PRN (12:30)
[2020-11-04] MEDS ORDERED: AZITHROMYCIN 500 MG in IV NORMAL SALINE 250ML 250 ML IV ONE (12:30)
[2020-11-04] MEDS ORDERED: PROCHLORPERAZINE 10 MG/2 ML VIAL. IV PRN (12:30)
[2020-11-04] MEDS ORDERED: REMDESIVIR LOAD in IV NORMAL SALINE 250ML TV IV ONE (13:30)
--- NOTE | 2020-11-04 14:50 | RAD ---
Examination: CT angiography chest with IV contrast HISTORY: History of fever, elevated d-dimer, covid+ COMPARISON: None TECHNIQUE: Axial CT angiographic images of chest were performed with IV contrast. Coronal and sagitta l 3-D MIP reformats are performed. Exposure: One or more of the following individualized dose reduction techniques were utilized for thi s examination: 1. Automated exposure control 2. Adjustment of the mA and/or kV according to patient size 3. Use of iterative reconstruction technique FINDINGS: The central airways are patent. Mild cardiomegaly. Mild aortic atherosclerosis. There is no evidence of filling defect identified in the main pulmonary artery trunk and right and comparison the visualiz ed lobar, segmental branches of the pulmonary arteries. Large hiatal hernia. Faint groundglass airspace opacities identified in the bilateral lungs. Linear bibasilar lung atelect asis. The liver, spleen, adrenals grossly appears unremarkable. Partially visualized bilateral renal cysts. There is mild fat stranding identified about the left kidney could be due to cyst rupture lee lar to CT abdomen from 11/02/2020. Mild degenerative changes thoracic .Spinal stimulator identified in the mid thoracic spine. IMPRESSION: 1. No evidence of pulmonary embolism. 2. Faint groundglass airspace opacities identified in the bilateral lungs could be infiltrates or at ypical or viral pneumonia. Follow-up to resolution. 3. Large hiatal hernia. 4. Mild fat stranding identified about the left kidney could be due to cyst rupture similar to CT ab domen from 11/02/2020. Electronically signed by: Mesfin Murphy MD (11/04/2020 2:47 PM) [id number]
[2020-11-04 15:56] VITALS: BP 108/51
[2020-11-04] MEDS: IPRATROPIUM/ALBUTEROL 20/100mcg/INH INHALER. INH SCH ×2 (16:56→19:53)
[2020-11-04 19:34] VITALS: BP 105/65
[2020-11-04] MEDS: MELATONIN 3 MG TABLET PO PRN (19:53)
[2020-11-04] MEDS: LACTOBACILLUS RHAMNOSUS GG 1 CAPSULE. PO SCH (19:56)
[2020-11-05] MEDS: PIPERACILLIN/TAZOBACTAM 3.375 GM in IV NORMAL SALINE 50ML 50 ML IV SCH ×3 (01:45→18:05)
[2020-11-05] MEDS: IV 1/2 NORMAL SALINE 1,000 ML IV SCH (01:53)
[2020-11-05] MEDS: ACETAMINOPHEN 500 MG TABLET PO PRN ×2 (03:10→10:42)
[2020-11-05 04:13] VITALS: BP 104/61
[2020-11-05] MEDS: AZITHROMYCIN 250 MG TABLET. PO SCH (08:33)
[2020-11-05] MEDS: IPRATROPIUM/ALBUTEROL 20/100mcg/INH INHALER. INH SCH ×4 (08:33→21:51)
[2020-11-05] MEDS: LACTOBACILLUS RHAMNOSUS GG 1 CAPSULE. PO SCH ×2 (08:34→21:51)
[2020-11-05] MEDS: SENNOSIDES/DOCUSATE 8.6/50MG TABLET. PO SCH ×2 (08:34→21:51)
[2020-11-05] MEDS: ENOXAPARIN 40 MG/0.4 ML SYRINGE. SQ SCH (08:34)
[2020-11-05] MEDS: FINASTERIDE 5 MG TABLET. PO SCH (08:34)
[2020-11-05] MEDS: OXYBUTYNIN CHLORIDE 5 MG TABLET PO SCH ×3 (08:34→21:51)
[2020-11-05] MEDS: PANTOPRAZOLE 40 MG TABLET. PO SCH (08:34)
[2020-11-05] MEDS: CALCIUM CARB/VIT D3 500/200 TABLET PO SCH (08:34)
[2020-11-05] MEDS ORDERED: ZOLPIDEM 5 MG TABLET. PO PRN (09:15)
[2020-11-05] MEDS ORDERED: MORPHINE SULFATE 2 MG/ML DISP.SYRIN. IV PRN (09:15)
[2020-11-05] MEDS: DEXAMETHASONE SOD PHOS 4 MG/ML VIAL. IVP SCH ×3 (09:47→21:51)
[2020-11-05] MEDS: AA 4.25 %/CALCIUM/LYTES/D5W 1,000 ML IV SCH (09:47)
[2020-11-05 11:33] VITALS: BP 111/57
[2020-11-05] MEDS: REMDESIVIR 100mg in NORMAL SALINE 250ML X 4 DAYS IV SCH (14:10)
[2020-11-05 15:50] VITALS: BP 107/66
[2020-11-05 19:15] VITALS: BP 95/74
--- NOTE | 2020-11-05 21:12 | PN ---
SUBJECTIVE: An 80-year-old gentleman with COVID-19 pneumonia, respiratory distress. The patient was turned down by for transfer for lack of medical necessity. However, the patient does have COVID-19. He has been treated with Decadron and remdesivir breathing treatments for present. Unable to supply other antibodies for this patient. In any case, the patient is still very ill this morning, very lethargic. He is not doing extremely well due to his age and the severity of his infection. The patient, however, has vital signs include blood pressure 104/60, respiratory rate 20, pulse 62, temperature 100.2. He is on Zithromax and piperacillin. Piperacillin was started because of his problem with his gallbladder, thought that he might have cholelithiasis, cholecystitis, which was a possible diagnosis at GI. This morning, his lipase is also elevated consistent with the possibility of pancreatitis. We will need to keep a close eye on that. CTA demonstrated ground glass opacities consistent with viral pneumonia, large hiatal hernia. We will need to go ahead and be aggressive with that and continue to monitor him on that. OBJECTIVE: GENERAL: Otherwise, he is alert but not past the spirits and hurting. LUNGS: Diminished throughout, poor movement of air. CARDIOVASCULAR: Stable. ABDOMEN: Soft, diffuse tenderness, but he says it actually does not hurt as much as it has been. EXTREMITIES: No clubbing, cyanosis, nor edema. NEUROLOGIC: Intact. We will continue to monitor his nutritional intake. May start him on procalamine for additional support. Otherwise, very ill individual. Not sleeping well in pain. IMPRESSION: COVID-19 pneumonia, acute respiratory failure, pancreatitis, possible cholelithiasis, cholecystitis, severe protein malnutrition. He is showing signs of ketoacidosis. PLAN: We will start him on procalamine, discontinue IV fluids, given some additional nutritional support. Monitor carefully. ERIC/DURGA DR: ERIC/jada TID: [id number]
[2020-11-05] MEDS: MELATONIN 3 MG TABLET PO PRN (21:51)
[2020-11-05 23:37] VITALS: BP 126/85
[2020-11-06] MEDS: AA 4.25 %/CALCIUM/LYTES/D5W 1,000 ML IV SCH (01:40)
[2020-11-06] MEDS: PIPERACILLIN/TAZOBACTAM 3.375 GM in IV NORMAL SALINE 50ML 50 ML IV SCH ×3 (02:00→18:14)
[2020-11-06] MEDS: DEXAMETHASONE SOD PHOS 4 MG/ML VIAL. IVP SCH ×3 (05:43→22:14)
[2020-11-06 06:00] VITALS: BP 136/62
[2020-11-06 07:00] LABS: ALBUMIN 2.2 g/dL (3.4-5.0); ALBUMIN/GLOBULIN RATIO 0.6 (1.0-1.7); CALCIUM 9.7 mg/dL (8.5-10.1); CREATININE 1.1 mg/dL (0.7-1.3); GFR 64.4; POTASSIUM 4.6 mmol/L (3.5-5.1); TOTAL BILIRUBIN 0.2 mg/dL (0.2-1.0); TOTAL PROTEIN 5.8 g/dL (6.4-8.2)
[2020-11-06] MEDS: IPRATROPIUM/ALBUTEROL 20/100mcg/INH INHALER. INH SCH ×4 (09:13→20:12)
[2020-11-06] MEDS: LACTOBACILLUS RHAMNOSUS GG 1 CAPSULE. PO SCH ×2 (09:14→20:12)
[2020-11-06] MEDS: OXYBUTYNIN CHLORIDE 5 MG TABLET PO SCH ×3 (09:14→20:13)
[2020-11-06] MEDS: CALCIUM CARB/VIT D3 500/200 TABLET PO SCH (09:14)
[2020-11-06] MEDS: SENNOSIDES/DOCUSATE 8.6/50MG TABLET. PO SCH ×2 (09:14→20:12)
[2020-11-06] MEDS: AZITHROMYCIN 250 MG TABLET. PO SCH (09:14)
[2020-11-06] MEDS: PANTOPRAZOLE 40 MG TABLET. PO SCH (09:14)
[2020-11-06] MEDS: ENOXAPARIN 40 MG/0.4 ML SYRINGE. SQ SCH (09:14)
[2020-11-06 11:09] VITALS: BP 118/55
[2020-11-06] MEDS: REMDESIVIR 100mg in NORMAL SALINE 250ML X 4 DAYS IV SCH (13:50)
[2020-11-06] MEDS: ACETAMINOPHEN 500 MG TABLET PO PRN ×2 (13:51→20:12)
[2020-11-06 15:40] VITALS: BP 122/63
[2020-11-06] MEDS: MELATONIN 3 MG TABLET PO PRN (20:12)
[2020-11-06 20:45] VITALS: BP 116/68
--- NOTE | 2020-11-06 21:03 | PN ---
SUBJECTIVE: The patient is an 80-year-old male, in with respiratory failure secondary to COVID-19 pneumonia. The patient is resting comfortably. He is on remdesivir and antibiotics as well. He seems to be doing a little better. He did have an elevation of his lipase and possibly some pancreatitis as well going on, but that seems to have resolved. He is now eating a little bit on his own, so we can discontinue his peripheral nutritional supplement. Otherwise, continue on his antibiotics and other medications that does seem to help him breathe a lot easier. He is also on Lovenox. OBJECTIVE: VITAL SIGNS: Blood pressure 120/50, respiratory rate 18, pulse 70, afebrile, 3 liters at 94. GENERAL: The patient is alert and oriented, still very winded, just moving in bed, very tired and fatigued, but says he did sleep a little better last night. LUNGS: Diminished throughout. CARDIOVASCULAR: Regular sinus rhythm. ABDOMEN: Soft. EXTREMITIES: No clubbing, cyanosis or edema. No nausea or vomiting. NEUROLOGIC: The patient is resting fairly comfortably, making fairly good progress overall. IMPRESSION: Acute respiratory failure secondary to COVID-19 and pneumonia as noted. PLAN: Continue to monitor him accordingly and make further adjustments on his medications. Encouraged dietary input for protein supplementation. ERIC/CHUCKY DR: ERIC/jada TID: [id number]
[2020-11-06 23:19] VITALS: BP 123/65
[2020-11-07] MEDS: PIPERACILLIN/TAZOBACTAM 3.375 GM in IV NORMAL SALINE 50ML 50 ML IV SCH ×3 (02:50→18:04)
[2020-11-07] MEDS: ACETAMINOPHEN 500 MG TABLET PO PRN (07:04)
[2020-11-07] MEDS: DEXAMETHASONE SOD PHOS 4 MG/ML VIAL. IVP SCH ×2 (07:04→20:39)
[2020-11-07 07:15] VITALS: BP 131/73
[2020-11-07] MEDS: IPRATROPIUM/ALBUTEROL 20/100mcg/INH INHALER. INH SCH ×4 (08:37→20:39)
[2020-11-07] MEDS: CALCIUM CARB/VIT D3 500/200 TABLET PO SCH (09:05)
[2020-11-07] MEDS: AZITHROMYCIN 250 MG TABLET. PO SCH (09:05)
[2020-11-07] MEDS: OXYBUTYNIN CHLORIDE 5 MG TABLET PO SCH ×3 (09:05→20:39)
[2020-11-07] MEDS: LACTOBACILLUS RHAMNOSUS GG 1 CAPSULE. PO SCH ×2 (09:05→20:39)
[2020-11-07] MEDS: ENOXAPARIN 40 MG/0.4 ML SYRINGE. SQ SCH (09:05)
[2020-11-07] MEDS: SENNOSIDES/DOCUSATE 8.6/50MG TABLET. PO SCH ×2 (09:05→20:39)
[2020-11-07] MEDS: PANTOPRAZOLE 40 MG TABLET. PO SCH (09:06)
[2020-11-07 11:57] VITALS: BP 117/56
[2020-11-07] MEDS: REMDESIVIR 100mg in NORMAL SALINE 250ML X 4 DAYS IV SCH (13:57)
[2020-11-07 15:29] VITALS: BP 122/69
[2020-11-07 15:32] VITALS: BP 128/63
[2020-11-07 19:47] VITALS: BP 121/61
[2020-11-07] MEDS: MELATONIN 3 MG TABLET PO PRN (20:39)
[2020-11-07 21:05] VITALS: BP 120/60
[2020-11-08] MEDS: PIPERACILLIN/TAZOBACTAM 3.375 GM in IV NORMAL SALINE 50ML 50 ML IV SCH ×2 (01:50→10:00)
--- NOTE | 2020-11-08 02:12 | PN ---
SUBJECTIVE: An 80-year-old male in with COVID-19 pneumonia, respiratory failure, and pancreatitis. The patient is making steady progress. He is on 3 liters at 95%. OBJECTIVE: VITAL SIGNS: Blood pressure 130/73, respiratory rate 20, pulse 50, afebrile. GENERAL: The patient basically says he feels better and has improved. LUNGS: Diminished, but clear. CARDIOVASCULAR: The CVR exam is stable. ABDOMEN: Soft. Still somewhat tender in the head of the pancreatic area. As noted earlier, his lipase was elevated at 400 and he will continue to be monitored on that. Otherwise, he is eating and drinking on his own. LABORATORY DATA: The patient's labs from yesterday 137, 4.6, BUN and creatinine 22 and 1.1 ____ total protein, albumin 2.2. Otherwise, he is making good progress overall. IMPRESSION: Pneumonia, COVID-19, acute respiratory failure, acute pancreatitis, severe protein malnutrition. PLAN: Continue on present protocol with the remdesivir, taper down on Decadron, and we will get chest x-ray in the morning to determine the resolution of this pneumonic process. ERIC/CELIA/HELENE DR: ERIC/jada TID: [id number]
[2020-11-08 06:30] VITALS: BP 128/74
[2020-11-08] MEDS: SENNOSIDES/DOCUSATE 8.6/50MG TABLET. PO SCH (07:58)
[2020-11-08] MEDS: CALCIUM CARB/VIT D3 500/200 TABLET PO SCH (07:58)
[2020-11-08] MEDS: IPRATROPIUM/ALBUTEROL 20/100mcg/INH INHALER. INH SCH ×2 (07:58→12:00)
[2020-11-08] MEDS: LACTOBACILLUS RHAMNOSUS GG 1 CAPSULE. PO SCH (07:58)
[2020-11-08] MEDS: PANTOPRAZOLE 40 MG TABLET. PO SCH (07:58)
[2020-11-08] MEDS: OXYBUTYNIN CHLORIDE 5 MG TABLET PO SCH (07:59)
[2020-11-08] MEDS: ENOXAPARIN 40 MG/0.4 ML SYRINGE. SQ SCH (07:59)
[2020-11-08] MEDS: AZITHROMYCIN 250 MG TABLET. PO SCH (08:00)
[2020-11-08] MEDS: DEXAMETHASONE SOD PHOS 4 MG/ML VIAL. IVP SCH (08:00)
--- NOTE | 2020-11-08 10:12 | RAD ---
EXAM: Chest, 2 views. HISTORY: Infiltrate. COMPARISON: 11/04/2020 FINDINGS: 2 views of the chest are obtained. There is bilateral lateral mid thoracic and infrahilar i nterstitial opacity. There is no pleural effusion or pneumothorax. There is a moderate hiatal hernia. The heart is normal in size. There are dorsal column stimulator leads overlying the thoracic spine. There are surgical clips at the gastroesophageal junction. IMPRESSION: 1. Suspected bilateral lateral mid thoracic and infrahilar interstitial infiltrate. This is similar c ompared to the prior CT, allowing for differences in imaging modality. 2. Moderate hiatal hernia. Electronically signed by: Steff Taylor MD (11/08/2020 10:10 AM) [id number]
[2020-11-08 11:02] VITALS: BP 135/71
[2020-11-08] MEDS: REMDESIVIR 100mg in NORMAL SALINE 250ML X 4 DAYS IV SCH (13:30)
[2020-11-08] MEDS ORDERED: PRED-220 PO (14:42)
[2020-11-08] MEDS ORDERED: AZIT250T6 PO (14:42)
--- NOTE | 2020-11-08 15:04 | DISCH ---
HOME HEALTH DISCHARGE/MEDS DISCHARGE INFORMATION: Discharge Date: Nov 08, 2020 Final Diagnosis: COVID pneumonhypoxia Condition on Discharge: Stable CODE STATUS: Code Status: Full HOME HEALTH: Face to Face: I certify this patient is under my care and that I, or a nurse practitioner or physician's promotions assistant sales marketing working with me, had a face to face encounter that meets the physician face to face encounter requirements with this patient on October. Medical Condition(s): Pneumonia, Other (COVID) Half-Way For: Assess Cardiopulm Status, Assess & Educate Safety, Assess/Skilled Observatio, Medication Management Homebound Status Met By: Fatigue w/ amb. POST DISCHARGE ORDERS: Activity Instructions for Disc: Activity as tolerated Weight Bearing Status after Di: No restrictions DIET AFTER DISCHARGE: Regular CERTIFICATION STATEMENT: Certification Statement: Based on the above finding, I certify that this patient is confined to the home and needs intermittent fdc care, physical therapy and/or speech therapy, or continues to need occupational therapy.~ This patient is under my care, and I have initiated the establishment of the plan of care.~ This patient will be followed by myself or a community physician who will periodically review the plan of care. DISCHARGE MEDICATIONS: Home Meds Active Scripts Prednisone (PREDNISONE) 10 Mg Tablet, 10 MG PO DAILY for pnuemonia for 60 Days, #60 TAB Prov:AUSTYN MCNEIL MD 11/08/20 Azithromycin (AZITHROMYCIN TABLET) 250 Mg Tablet, 250 MG PO DAILY for pneumonia for 3 Days, #3 TAB Prov:AUSTYN MCNEIL MD 11/08/20 Reported Medications Sennosides/Docusate Sodium (Senna-Docusate Sodium Tablet) 1 Each Tablet, 1 TAB PO BID for Home MEd for 20 Days, #40 TAB 0 Refills 11/03/20 Pravastatin Sodium (PRAVASTATIN SODIUM) 20 Mg Tablet, 1 TAB PO QHS for Home MEd, #90 TAB 1 Refill 11/03/20 Polyethylene Glycol 3350 (MIRALAX) 17 Gm Powd.pack, 1 PACKET PO PRN for Home Med for 2 Days, PACKET 0 Refills dissolve in water 11/03/20 Pantoprazole Sodium (PANTOPRAZOLE SODIUM) 40 Mg Tablet.dr, 1 TAB PO DAILY for Home Med, #30 TAB 3 Refills 11/03/20 Oxycodone Hcl (OXYCODONE HCL IMMED.RELEASE ) 5 Mg Tablet, 5 MG PO PRN Q6HRS PRN for PAIN, TAB 11/03/20 Oxybutynin Chloride (OXYBUTYNIN CHLORIDE) 5 Mg Tablet, 1 TAB PO TID for Home MEd, #60 TAB 11 Refills 11/03/20 Hyoscyamine Sulfate (HYOSCYAMINE SULFATE) 0.125 Mg Tab.rapdis, 1 TAB PO PRN Q4HRS for Home Med, #90 TAB 0 Refills 11/03/20 Finasteride (FINASTERIDE) 5 Mg Tablet, 1 TAB PO DAILY for Home Med, #30 TAB 11 Refills 11/03/20 Calcium Carbonate/Vitamin D3 (CALTRATE 600 + D TABLET) 1 Each Tablet, 1 EACH PO DAILY for Home Med, TAB 11/03/20 Acetaminophen (ACETAMINOPHEN) 500 Mg Tablet, 2 TAB PO PRN Q6HRS PRN for pain or fever for 15 Days, #60 TAB 0 Refills 11/03/20 AUSTYN MCNEIL MD Nov 08, 2020 15:04
== END 2020-11-08 15:20 | disposition home health service (06) | DRG 177 ==
LOC: 1 SOUTH 14:01
PROVIDERS: ADMIT Family Medicine; ATTEND Family Medicine
PROC: XW033E5 Introduction of Remdesivir Anti-infective into Peripheral Vein, Percutaneous Approach, New Technology Group 5 (ICD-10-PCS; principal; 2020-11-04)
DX: U07.1 COVID-19 (principal); E43 Unspecified severe protein-calorie malnutrition; J12.82 Pneumonia due to coronavirus disease 2019; J96.00 Acute respiratory failure, unspecified whether with hypoxia or hypercapnia; K85.90 Acute pancreatitis without necrosis or infection, unspecified; K80.10 Calculus of gallbladder with chronic cholecystitis without obstruction; E87.2 Acidosis; K21.9 Gastro-esophageal reflux disease without esophagitis; K57.90 Diverticulosis of intestine, part unspecified, without perforation or abscess without bleeding; E78.00 Pure hypercholesterolemia, unspecified; E86.0 Dehydration; N28.9 Disorder of kidney and ureter, unspecified; N40.0 Benign prostatic hyperplasia without lower urinary tract symptoms; Z87.442 Personal history of urinary calculi; Z85.828 Personal history of other malignant neoplasm of skin; Z79.01 Long term (current) use of anticoagulants; Z68.22 Body mass index [BMI] 22.0-22.9, adult
CPT/HCPCS: 36415; 71046; 71275; 74176; 80048; 80053; 81001; 83690; 84443; 85025; 86140; 87426; 93005; 94618; J0456; J0696; J0744; J0780; J1100; J1650; J2270; J2543; J3490; J7030; J7050; Q9967